=== PATIENT | male | born 1995 | race Caucasian/White ===

== ENCOUNTER 2020-01-02 19:18 | Inpatient (IN) ==
[2020-01-02] MEDS ORDERED: 0.9 % Sodium Chloride 1,000 ML IVC ONE (19:48)
[2020-01-02 20:57] LABS: Basophils % 0.2 %; Eosinophils # 0.1 K/mcL (0.0-0.6); Eosinophils % 0.4 %; Hematocrit 44.2 % (37.5-50.1); Hemoglobin 15.1 g/dL (12.9-16.9); Immature Granulocytes % 0.2 % (0-4); Lymphocytes # 1.9 K/mcL (0.6-4.6); Lymphocytes % 14.8 %; Mean Corpuscular HGB Conc 34.2 g/dL (31.6-35.5); Mean Corpuscular Hemoglobin 28.9 pg (28.0-33.3); Mean Corpuscular Volume 84.5 fL (83.0-100.0); Mean Platelet Volume 9.8 fL (9.4-12.4); Monocytes # 0.7 K/mcL (0.0-1.3); Monocytes % 5.1 %; Neutrophils # 10.4 K/mcL (1.6-8.9); Platelet Count 246 K/mcL (140-400); Red Blood Count 5.23 M/mcL (4.19-5.50); Red Cell Distribution Width 12.3 % (11.5-14.5); Segmented Neutrophils % 79.3 %; White Blood Count 13.1 K/mcL (4.3-11.1)
[2020-01-02 21:18] LABS: Alanine Aminotransferase 25 Units/L (7-52); Albumin 4.2 g/dL (3.5-5.7); Albumin/Globulin Ratio 1.4 (1.1-2.2); Alkaline Phosphatase 61 Units/L (34-104); Aspartate Amino Transferase 20 Units/L (13-39); BUN/Creatinine Ratio 10 (6-26); Bilirubin,Total 1.1 mg/dL (0.3-1.0); Blood Urea Nitrogen 10 mg/dL (6-20); Calcium 9.5 mg/dL (8.6-10.3); Carbon Dioxide 19 mEq/L (23-29); Chloride 109 mEq/L (98-107); Globulin 3.1 g/dL (2.4-3.5); Glucose 115 mg/dL (70-105); Osmolality,Calculated 286 (280-300); Potassium 3.5 mEq/L (3.5-5.1); Sodium 138 mEq/L (136-145); Total Protein 7.3 g/dL (6.4-8.9); eGFR For African Americans > 60 (> 60); eGFR For Non-African Americans > 60 (> 60)
[2020-01-02] MEDS ORDERED: Naloxone 0.4 MG/ML INJ IVP PRN (21:35)
[2020-01-02] MEDS ORDERED: *HR* LORazepam 2 MG/ML VIAL IVP PRN (21:41)
[2020-01-02] MEDS: 0.9 % Sodium Chloride 1,000 ML IVC SCH (22:28)
[2020-01-02] MEDS: Ipratropium/Albuterol Neb 3 ML IH SCH (23:58)
[2020-01-03] MEDS: Ipratropium/Albuterol Neb 3 ML IH SCH ×4 (04:39→15:43)
[2020-01-03 06:47] LABS: Basophils % 0.2 %; Eosinophils % 0.4 %; Hematocrit 42.5 % (37.5-50.1); Hemoglobin 14.4 g/dL (12.9-16.9); Immature Granulocytes % 0.3 % (0-4); Lymphocytes % 18.5 %; Mean Corpuscular HGB Conc 33.9 g/dL (31.6-35.5); Mean Corpuscular Volume 85.5 fL (83.0-100.0); Mean Platelet Volume 10.1 fL (9.4-12.4); Monocytes # 0.8 K/mcL (0.0-1.3); Monocytes % 6.9 %; Neutrophils # 8.1 K/mcL (1.6-8.9); Platelet Count 231 K/mcL (140-400); Red Blood Count 4.97 M/mcL (4.19-5.50); Red Cell Distribution Width 12.6 % (11.5-14.5); Segmented Neutrophils % 73.7 %; White Blood Count 10.9 K/mcL (4.3-11.1)
[2020-01-03] MEDS: 0.9 % Sodium Chloride 1,000 ML IVC SCH (06:51)
[2020-01-03 07:03] LABS: BUN/Creatinine Ratio 9 (6-26); Blood Urea Nitrogen 9 mg/dL (6-20); Calcium 9.1 mg/dL (8.6-10.3); Carbon Dioxide 20 mEq/L (23-29); Chloride 110 mEq/L (98-107); Glucose 109 mg/dL (70-105); Osmolality,Calculated 287 (280-300); Phosphorous 2.8 mg/dL (2.7-4.5); Potassium 3.3 mEq/L (3.5-5.1); Sodium 139 mEq/L (136-145); eGFR For African Americans > 60 (> 60); eGFR For Non-African Americans > 60 (> 60)
[2020-01-03] MEDS ORDERED: Acetaminophen 325 MG TABLET PO PRN (12:45)
[2020-01-03] MEDS ORDERED: Melatonin 3 MG TABLET PO STA (20:48)
[2020-01-04 09:07] LABS: Hematocrit 47.7 % (37.5-50.1); Hemoglobin 15.9 g/dL (12.9-16.9); Mean Corpuscular HGB Conc 33.3 g/dL (31.6-35.5); Mean Corpuscular Hemoglobin 29.1 pg (28.0-33.3); Mean Corpuscular Volume 87.4 fL (83.0-100.0); Mean Platelet Volume 9.5 fL (9.4-12.4); Platelet Count 234 K/mcL (140-400); Red Blood Count 5.46 M/mcL (4.19-5.50); White Blood Count 10.6 K/mcL (4.3-11.1)
[2020-01-04 09:24] LABS: BUN/Creatinine Ratio 9 (6-26); Blood Urea Nitrogen 8 mg/dL (6-20); Carbon Dioxide 24 mEq/L (23-29); Chloride 107 mEq/L (98-107); Glucose 97 mg/dL (70-105); Osmolality,Calculated 284 (280-300); Sodium 138 mEq/L (136-145); eGFR For African Americans > 60 (> 60); eGFR For Non-African Americans > 60 (> 60)
[2020-01-04 12:11] VITALS: BP 124/77
[2020-01-04] MEDS ORDERED: FLU Vac QV 19-20 (6Month+)/PF 0.5 ML SYRINGE IM ONE (13:40)
== END 2020-01-04 14:45 ==
LOC: 3BNU 19:18 → EMEROOARM 19:18 → SUATTDRO 21:35 → 3BNU 21:38
PROVIDERS: ADMIT Student in an Organized Health Care Education/Training Program; ATTEND Internal Medicine

== ENCOUNTER 2020-01-04 14:35 | Inpatient (IN) ==
[2020-01-04] MEDS ORDERED: haloperidoL 5 MG TABLET PO PRN (14:54)
[2020-01-04] MEDS ORDERED: Mag Hydrox/Al Hydrox/Simeth 30 ML UDC PO PRN (14:54)
[2020-01-04] MEDS ORDERED: Haloperidol Lactate 5 MG/ML VIAL IM PRN (14:54)
[2020-01-04] MEDS ORDERED: MOM Conc 10 ML UD.LIQ PO PRN (14:54)
[2020-01-04] MEDS ORDERED: *HR* LORazepam 2 MG/ML VIAL IM PRN (14:54)
[2020-01-04] MEDS ORDERED: *HR* LORazepam 1 MG TABLET PO PRN (14:54)
[2020-01-04] MEDS: Ibuprofen 400 MG TABLET PO PRN (17:06)
[2020-01-04] MEDS: traZODone 50 MG TABLET PO PRN (20:12)
[2020-01-05] MEDS: Ibuprofen 400 MG TABLET PO PRN ×2 (08:50→20:15)
[2020-01-05] MEDS: traZODone 50 MG TABLET PO PRN (20:15)
[2020-01-05] MEDS: hydrOXYzine pamoate 25 MG CAPSULE PO PRN (20:15)
[2020-01-06] MEDS: Ibuprofen 400 MG TABLET PO PRN (17:21)
[2020-01-06] MEDS: traZODone 50 MG TABLET PO PRN (20:46)
[2020-01-06] MEDS: hydrOXYzine pamoate 25 MG CAPSULE PO PRN (20:46)
[2020-01-07 09:37] VITALS: BP 114/77
== END 2020-01-07 16:30 | disposition home or self-care (01) | DRG 754 ==
LOC: 1ANU 14:35
PROVIDERS: ADMIT Psychiatry & Neurology Psychiatry; ATTEND Psychiatry & Neurology Psychiatry

== ENCOUNTER 2020-09-24 19:54 | Inpatient (IN) ==
[2020-09-25] MEDS ORDERED: Haloperidol Lactate 5 MG/ML VIAL IM PRN (01:54)
[2020-09-25] MEDS ORDERED: hydrOXYzine pamoate 25 MG CAPSULE PO PRN (01:54)
[2020-09-25] MEDS ORDERED: haloperidoL 5 MG TABLET PO PRN (01:54)
[2020-09-25] MEDS ORDERED: *HR* LORazepam 2 MG/ML VIAL IM PRN (01:54)
[2020-09-25] MEDS ORDERED: Mag Hydrox/Al Hydrox/Simeth 30 ML UDC PO PRN (01:54)
[2020-09-25] MEDS ORDERED: *HR* LORazepam 1 MG TABLET PO PRN (01:54)
[2020-09-25] MEDS ORDERED: traZODone 50 MG TABLET PO PRN (01:54)
[2020-09-25] MEDS ORDERED: MOM Conc 10 ML UD.LIQ PO PRN (01:54)
[2020-09-25] MEDS: Acetaminophen 325 MG TABLET PO PRN (09:25)
[2020-09-26] MEDS: Acetaminophen 325 MG TABLET PO PRN (20:52)
[2020-09-27 08:35] VITALS: BP 107/73
== END 2020-09-27 14:00 | disposition home or self-care (01) | DRG 817 ==
LOC: EMEROOARM 19:54 → 1ANU 09-25 01:46
PROVIDERS: ADMIT Psychiatry & Neurology Psychiatry; ATTEND Psychiatry & Neurology Psychiatry

== ENCOUNTER 2021-05-12 03:55 | Inpatient (IN) ==
[2021-05-12 04:34] LABS: Bilirubin,Urine Negative (Negative); Blood,Urine Negative (Negative); Clarity,Urine Clear (Clear); Color,Urine Yellow (Yellow); Glucose,Urine (UA) Normal (Normal); Ketones,Urine Negative (Negative); Leukocyte Esterase,Urine Negative (Negative); Nitrite,Urine Negative (Negative); Protein,Urine Trace mg/dL (Neg-Trace); Specific Gravity,Urine 1.025 (1.010-1.025)
[2021-05-12 04:45] LABS: Amphetamine Screen,Urine Positive ng/mL (Cutoff=1000); Barbiturate Screen,Urine Negative ng/mL (Cutoff=200); Benzodiazepines Screen,Urine Negative ng/mL (Cutoff=200); Cannabinoid Screen,Urine Negative ng/mL (Cutoff = 50); Cocaine Screen,Urine Negative ng/mL (Cutoff= 300); Opiate Screen,Urine Negative ng/mL (Cutoff=300); Phencyclidine Screen,Urine Negative ng/mL (Cutoff=25)
[2021-05-12 06:36] LABS: Adenovirus Not Detected (Not Detect); Bordetella Pertussis Not Detected (Not Detect); Chlamydophila pneumoniae Not Detected (Not Detect); Coronavirus 229E Not Detected (Not Detect); Coronavirus HKU1 Not Detected (Not Detect); Coronavirus NL63 Not Detected (Not Detect); Coronavirus OC43 Not Detected (Not Detect); Human Metapneumovirus Not Detected (Not Detect); Human Rhinovirus/Enterovirus Not Detected (Not Detect); Influenza A Subtype 2009 H1 Not Detected (Not Detect); Influenza B Not Detected (Not Detect); Mycoplasma pneumoniae Not Detected (Not Detect); Parainfluenza Virus 1 Not Detected (Not Detect); Parainfluenza Virus 2 Not Detected (Not Detect); Parainfluenza Virus 3 Not Detected (Not Detect); Parainfluenza Virus 4 Not Detected (Not Detect); Respiratory Syncytial Virus Not Detected (Not Detect); SARS-CoV-2 Not Detected (Not Detect)
[2021-05-12] MEDS ORDERED: *HR* LORazepam 2 MG/ML VIAL IM PRN (06:59)
[2021-05-12] MEDS ORDERED: *HR* LORazepam 1 MG TABLET PO PRN (06:59)
[2021-05-12] MEDS ORDERED: haloperidoL 5 MG TABLET PO PRN (06:59)
[2021-05-12] MEDS ORDERED: Haloperidol Lactate 5 MG/ML VIAL IM PRN (06:59)
[2021-05-12] MEDS ORDERED: Mag Hydrox/Al Hydrox/Simeth 30 ML UDC PO PRN (12:43)
[2021-05-12] MEDS: ARIPiprazole 5 MG TABLET PO SCH (20:33)
[2021-05-12] MEDS: traZODone 50 MG TABLET PO PRN (20:33)
[2021-05-12] MEDS: hydrOXYzine pamoate 25 MG CAPSULE PO PRN (20:33)
[2021-05-13] MEDS: Acetaminophen 325 MG TABLET PO PRN ×2 (05:52→20:51)
[2021-05-13] MEDS: traZODone 50 MG TABLET PO PRN (20:51)
[2021-05-13] MEDS: ARIPiprazole 5 MG TABLET PO SCH (20:51)
[2021-05-13] MEDS: hydrOXYzine pamoate 25 MG CAPSULE PO PRN (20:51)
[2021-05-14] MEDS: hydrOXYzine pamoate 25 MG CAPSULE PO PRN (20:58)
[2021-05-14] MEDS: Acetaminophen 325 MG TABLET PO PRN (20:58)
[2021-05-14] MEDS: ARIPiprazole 5 MG TABLET PO SCH (20:58)
[2021-05-14] MEDS: traZODone 50 MG TABLET PO PRN (20:58)
[2021-05-15] MEDS ORDERED: Ibuprofen 600 MG TABLET PO PRN (10:50)
[2021-05-15] MEDS: Acetaminophen 325 MG TABLET PO PRN ×2 (12:35→21:03)
[2021-05-15] MEDS: ARIPiprazole 10 MG TABLET PO SCH (21:03)
[2021-05-15] MEDS: hydrOXYzine pamoate 25 MG CAPSULE PO PRN (21:03)
[2021-05-15] MEDS: traZODone 50 MG TABLET PO PRN (21:03)
[2021-05-16] MEDS: MOM Conc 10 ML UD.LIQ PO PRN (15:03)
[2021-05-16] MEDS: ARIPiprazole 10 MG TABLET PO SCH (20:37)
[2021-05-16] MEDS: hydrOXYzine pamoate 25 MG CAPSULE PO PRN (20:37)
[2021-05-16] MEDS: traZODone 50 MG TABLET PO PRN (20:37)
[2021-05-17] MEDS: ARIPiprazole 10 MG TABLET PO SCH (20:22)
[2021-05-17] MEDS: hydrOXYzine pamoate 25 MG CAPSULE PO PRN (20:22)
[2021-05-17] MEDS: traZODone 50 MG TABLET PO PRN (21:13)
[2021-05-17] MEDS: MOM Conc 10 ML UD.LIQ PO PRN (22:27)
[2021-05-18 09:16] VITALS: BP 111/68; PULSE 101; TEMP 98; O2SAT 96
== END 2021-05-18 10:15 | disposition home or self-care (01) | DRG 384 ==
LOC: EMEROOARM 03:55 → 1ANU 06:48
PROVIDERS: ADMIT Psychiatry & Neurology Psychiatry; ATTEND Psychiatry & Neurology Psychiatry

== ENCOUNTER 2022-02-04 09:30 | Inpatient (IN) ==
[2022-02-04] MEDS ORDERED: *HR* LORazepam 1 MG TABLET PO ONE (11:56)
[2022-02-04] MEDS ORDERED: Mag Hydrox/Al Hydrox/Simeth 30 ML UDC PO PRN (14:31)
[2022-02-04] MEDS ORDERED: Haloperidol Lactate 5 MG/ML VIAL IM PRN (14:31)
[2022-02-04] MEDS ORDERED: Ibuprofen 400 MG TABLET PO PRN (14:31)
[2022-02-04] MEDS ORDERED: MOM Conc 10 ML UD.LIQ PO PRN (14:31)
[2022-02-04] MEDS ORDERED: *HR* LORazepam 2 MG/ML VIAL IM PRN (14:31)
[2022-02-04] MEDS: *HR* LORazepam 1 MG TABLET PO PRN (14:57)
[2022-02-04] MEDS: haloperidoL 5 MG TABLET PO PRN (14:57)
[2022-02-05] MEDS: hydrOXYzine pamoate 25 MG CAPSULE PO PRN (17:02)
[2022-02-05] MEDS: ARIPiprazole 10 MG TABLET PO SCH (20:18)
[2022-02-05] MEDS: haloperidoL 5 MG TABLET PO PRN (20:18)
[2022-02-05] MEDS: QUEtiapine Fumarate 25 MG TABLET PO PRN (20:18)
[2022-02-05] MEDS: *HR* LORazepam 1 MG TABLET PO PRN (20:18)
[2022-02-06] MEDS: hydrOXYzine pamoate 25 MG CAPSULE PO PRN (13:37)
[2022-02-06] MEDS ORDERED: Menthol 1 EACH LOZENGE PO PRN (17:37)
[2022-02-06] MEDS: ARIPiprazole 10 MG TABLET PO SCH (20:28)
[2022-02-06] MEDS: QUEtiapine Fumarate 25 MG TABLET PO PRN (20:28)
[2022-02-07] MEDS: hydrOXYzine pamoate 25 MG CAPSULE PO PRN ×2 (16:09→20:15)
[2022-02-07] MEDS: ARIPiprazole 10 MG TABLET PO SCH (20:15)
[2022-02-07] MEDS: QUEtiapine Fumarate 25 MG TABLET PO PRN (20:15)
[2022-02-07 22:09] VITALS: BP 128/84; PULSE 89; TEMP 98.1; O2SAT 96
== END 2022-02-07 21:23 | disposition other institution (70) | DRG 751 ==
LOC: EMEROOARM 09:30 → 1ANU 13:17
PROVIDERS: ADMIT Psychiatry & Neurology Psychiatry; ATTEND Psychiatry & Neurology Psychiatry

== ENCOUNTER 2022-04-07 01:26 | Inpatient (IN) ==
[2022-04-07] MEDS ORDERED: Ondansetron 4 MG/2 ML VIAL IVP PRN (11:32)
[2022-04-07] MEDS ORDERED: Mag Hydrox/Al Hydrox/Simeth 30 ML UDC PO PRN (11:32)
[2022-04-07] MEDS ORDERED: MOM Conc 10 ML UD.LIQ PO PRN (11:32)
[2022-04-07] MEDS ORDERED: Naloxone 0.4 MG/ML INJ IVP PRN (11:32)
[2022-04-07] MEDS ORDERED: Acetaminophen 325 MG TABLET PO PRN (11:32)
[2022-04-07] MEDS: Ringers Solution, Lactated 1,000 ML IVC SCH ×3 (12:04→23:50)
[2022-04-07] MEDS: hydrOXYzine pamoate 25 MG CAPSULE PO PRN (19:10)
[2022-04-08 04:04] LABS: Hematocrit 39.2 % (37.5-50.1); Hemoglobin 13.5 g/dL (12.9-16.9); Mean Corpuscular HGB Conc 34.4 g/dL (31.6-35.5); Mean Corpuscular Volume 87.1 fL (83.0-100.0); Mean Platelet Volume 9.7 fL (9.4-12.4); Platelet Count 170 K/mcL (140-400); Red Cell Distribution Width 12.6 % (11.5-14.5); White Blood Count 8.9 K/mcL (4.3-11.1)
[2022-04-08 04:38] LABS: Alanine Aminotransferase 49 Units/L (7-52); Albumin 3.8 g/dL (3.5-5.7); Albumin/Globulin Ratio 1.6 (1.1-2.2); Alkaline Phosphatase 42 Units/L (34-104); Aspartate Amino Transferase 131 Units/L (13-39); BUN/Creatinine Ratio 13 (6-26); Bilirubin,Total 2.1 mg/dL (0.3-1.0); Blood Urea Nitrogen 10 mg/dL (6-20); Calcium 8.6 mg/dL (8.6-10.3); Carbon Dioxide 19 mEq/L (23-29); Chloride 108 mEq/L (98-107); Creatine Kinase 3102 Units/L (30-223); Globulin 2.4 g/dL (2.4-3.5); Glucose 80 mg/dL (70-105); Magnesium 1.6 mg/dL (1.6-2.6); Osmolality,Calculated 282 (280-300); Potassium 3.6 mEq/L (3.5-5.1); Sodium 137 mEq/L (136-145); Total Protein 6.2 g/dL (6.4-8.9); eGFR For African Americans > 60 (> 60); eGFR For Non-African Americans > 60 (> 60)
[2022-04-08] MEDS: *HR* Enoxaparin 40 MG/0.4 ML SYRINGE SQ SCH (05:28)
[2022-04-08] MEDS: hydrOXYzine pamoate 25 MG CAPSULE PO PRN (08:27)
[2022-04-08] MEDS: Ringers Solution, Lactated 1,000 ML IVC SCH ×3 (08:28→23:04)
[2022-04-09 01:54] LABS: Basophils % 0.4 %; Eosinophils % 4.7 %; Hematocrit 40.4 % (37.5-50.1); Hemoglobin 13.7 g/dL (12.9-16.9); Immature Granulocytes % 0.3 % (0-4); Lymphocytes % 34.6 %; Mean Corpuscular HGB Conc 33.9 g/dL (31.6-35.5); Mean Corpuscular Hemoglobin 29.7 pg (28.0-33.3); Mean Corpuscular Volume 87.6 fL (83.0-100.0); Mean Platelet Volume 10.1 fL (9.4-12.4); Monocytes % 7.6 %; Neutrophils # 3.6 K/mcL (1.6-8.9); Platelet Count 181 K/mcL (140-400); Red Blood Count 4.61 M/mcL (4.19-5.50); Red Cell Distribution Width 12.4 % (11.5-14.5); Segmented Neutrophils % 52.4 %; White Blood Count 6.8 K/mcL (4.3-11.1)
[2022-04-09 01:55] LABS: Eosinophils # 0.3 K/mcL (0.0-0.6); Lymphocytes # 2.4 K/mcL (0.6-4.6); Monocytes # 0.5 K/mcL (0.0-1.3)
[2022-04-09 02:13] LABS: BUN/Creatinine Ratio 12 (6-26); Blood Urea Nitrogen 10 mg/dL (6-20); Calcium 8.4 mg/dL (8.6-10.3); Carbon Dioxide 25 mEq/L (23-29); Chloride 106 mEq/L (98-107); Creatine Kinase 1215 Units/L (30-223); Glucose 120 mg/dL (70-105); Magnesium 1.6 mg/dL (1.6-2.6); Osmolality,Calculated 286 (280-300); Potassium 3.2 mEq/L (3.5-5.1); Sodium 138 mEq/L (136-145); eGFR For African Americans > 60 (> 60); eGFR For Non-African Americans > 60 (> 60)
[2022-04-09] MEDS: *HR* Enoxaparin 40 MG/0.4 ML SYRINGE SQ SCH (05:45)
[2022-04-09] MEDS: Magnesium Oxide 400 MG TABLET PO SCH ×2 (08:07→20:25)
[2022-04-10] MEDS: *HR* Enoxaparin 40 MG/0.4 ML SYRINGE SQ SCH (05:52)
[2022-04-10 05:55] LABS: Basophils % 0.5 %; Eosinophils # 0.3 K/mcL (0.0-0.6); Eosinophils % 5.6 %; Hematocrit 42.9 % (37.5-50.1); Hemoglobin 14.6 g/dL (12.9-16.9); Immature Granulocytes % 0.2 % (0-4); Lymphocytes # 2.2 K/mcL (0.6-4.6); Lymphocytes % 38.1 %; Mean Corpuscular Hemoglobin 29.6 pg (28.0-33.3); Mean Platelet Volume 9.8 fL (9.4-12.4); Monocytes # 0.5 K/mcL (0.0-1.3); Neutrophils # 2.8 K/mcL (1.6-8.9); Platelet Count 195 K/mcL (140-400); Red Blood Count 4.93 M/mcL (4.19-5.50); Red Cell Distribution Width 12.4 % (11.5-14.5); Segmented Neutrophils % 47.6 %; White Blood Count 5.9 K/mcL (4.3-11.1)
[2022-04-10 06:19] LABS: BUN/Creatinine Ratio 9 (6-26); Blood Urea Nitrogen 7 mg/dL (6-20); Calcium 9.3 mg/dL (8.6-10.3); Carbon Dioxide 27 mEq/L (23-29); Chloride 108 mEq/L (98-107); Creatine Kinase 831 Units/L (30-223); Glucose 102 mg/dL (70-105); Magnesium 1.8 mg/dL (1.6-2.6); Osmolality,Calculated 288 (280-300); Potassium 4.1 mEq/L (3.5-5.1); Sodium 140 mEq/L (136-145); eGFR For African Americans > 60 (> 60); eGFR For Non-African Americans > 60 (> 60)
[2022-04-10 14:17] VITALS: BP 125/76; PULSE 82; TEMP 98.1; O2SAT 97
[2022-04-10 17:06] LABS: Influenza A PCR Negative (Negative); Influenza B PCR Negative (Negative); Resp. Syncytial Virus PCR Negative (Negative); SARS-CoV-2 by PCR (In House) Negative (Negative)
== END 2022-04-11 02:30 | DRG 817 ==
LOC: 3BNU → SUATTDRO 10:43
PROVIDERS: ADMIT Internal Medicine; ATTEND Pharmacist

== ENCOUNTER 2022-04-11 02:31 | Inpatient (IN) ==
[2022-04-11] MEDS ORDERED: *HR* LORazepam 2 MG/ML VIAL IM PRN (02:51)
[2022-04-11] MEDS ORDERED: Acetaminophen 325 MG TABLET PO PRN (02:51)
[2022-04-11] MEDS ORDERED: traZODone 50 MG TABLET PO PRN (02:51)
[2022-04-11] MEDS ORDERED: MOM Conc 10 ML UD.LIQ PO PRN (02:51)
[2022-04-11] MEDS ORDERED: Haloperidol Lactate 5 MG/ML VIAL IM PRN (02:51)
[2022-04-11] MEDS ORDERED: Mag Hydrox/Al Hydrox/Simeth 30 ML UDC PO PRN (02:51)
[2022-04-11] MEDS ORDERED: haloperidoL 5 MG TABLET PO PRN (02:51)
[2022-04-11] MEDS ORDERED: *HR* LORazepam 1 MG TABLET PO PRN (02:51)
[2022-04-11] MEDS: hydrOXYzine pamoate 25 MG CAPSULE PO PRN ×2 (13:29→21:55)
[2022-04-11] MEDS: ARIPiprazole 5 MG TABLET PO SCH (16:59)
[2022-04-12] MEDS: ARIPiprazole 5 MG TABLET PO SCH (09:04)
[2022-04-12] MEDS: hydrOXYzine pamoate 25 MG CAPSULE PO PRN (17:05)
[2022-04-13] MEDS: ARIPiprazole 5 MG TABLET PO SCH (08:53)
[2022-04-13 09:29] VITALS: BP 121/83; PULSE 108; TEMP 97.6; O2SAT 97
== END 2022-04-13 16:45 | disposition home or self-care (01) | DRG 751 ==
LOC: 1ANU 02:31
PROVIDERS: ADMIT Psychiatry & Neurology Psychiatry; ATTEND Psychiatry & Neurology Psychiatry